=== PATIENT | male | born 1965 | race Caucasian/White ===

== ENCOUNTER 2021-08-28 15:17 | Emergency (ER) | payer OTHER, SELFPAY ==
--- NOTE | 2021-08-28 | ECG_ITS ---
Test Reason : rapid afib Blood Pressure : / mmHG Vent. Rate : 134 BPM Atrial Rate : 330 BPM P-R Int : 000 ms QRS Dur : 086 ms QT Int : 264 ms P-R-T Axes : 000 042 -04 degrees QTc Int : 394 ms Atrial flutter with variable A-V block Nonspecific ST abnormality RSR' or QR pattern in V1 suggests right ventricular conduction delay Abnormal ECG No previous ECGs available Referred By: Berlin Haines Electronically Signed By:RACHAEL HODGES MD
--- NOTE | ~2021-08-28 | XR_ITS ---
EXAMINATION: XR CHEST CLINICAL INFORMATION: Tachycardia COMPARISON: None TECHNIQUE: Frontal view of the chest was obtained. FINDINGS: No significant abnormality is noted involving the heart, lungs, mediastinum, bony thorax or soft tissues. XR/XR chest 1V IMPRESSION: Unremarkable chest examination.
[2021-08-28 15:27] VITALS: BP 146/85; PULSE 131; RESP 17; TEMP 36.5; O2SAT 97; BMI 27.8
--- NOTE | 2021-08-28 15:56 | ED_ITS ---
HPI - General Adult General Chief complaint: General Medical <Torri Mckeon NP - Last Filed: 08/28/21 18:02> Stated complaint: abnormal labs <Torri Mckeon NP - Last Filed: 08/28/21 18:02> Time Seen by Provider: 08/28/21 15:39 <Torri Mckeon NP - Last Filed: 08/28/21 18:02> Source: patient <Torri Mckeon NP - Last Filed: 08/28/21 18:02> Mode of arrival: ambulatory <Torri Mckeon NP - Last Filed: 08/28/21 18:02> Limitations: no limitations <Torri Mckeon NP - Last Filed: 08/28/21 18:02> History of Present Illness HPI narrative: 56-year-old male with a past medical history of anxiety, tobacco smoker here with complaints of abnormal EKG. Patient tells me that he was at his primary care doctor today for an annual appointment and was noted to have a fast heart rate. He had EKG that he told was abnormal and he was referred into the emergency department. He does report feeling anxious for the last few days with some occasional fluttering in the chest but denies any shortness of breath, chest pain, dizziness, fevers, chills, leg swelling or pain. Denies substance use No recent travel or sick contact Fully vaccinated for Pfizer and received his booster 1 month ago <Torri Mckeon NP - Last Filed: 08/28/21 18:02> Related Data Home medications: Previous Rx's Medication Instructions Recorded aspirin 81 mg capsule 81 mg PO DAILY #30 cap 08/28/21 diltiazem HCl 240 mg 240 mg PO DAILY 14 Days #14 cap 08/28/21 capsule,extended release 24 hr (Cardizem CD) <LILLIAN Alicea Last Filed: 08/28/21 18:02> Allergies/adverse reactions: Allergies Allergy/AdvReac Type Severity Reaction Status Date / Time bees Allergy Unknown allergic Uncoded 08/28/21 15:26 reaction <LILLIAN Alicea Last Filed: 08/28/21 18:02> Review of Systems Review of Systems: Yes all other systems are reviewed and are negative <Torri Mckeon NP - Last Filed: 08/28/21 18:02> Constitutional: Constitutional: Reports no additional constitutional complaints, Denies body ache(s), Denies chills, Denies fever(s), Denies hea dache(s) and Denies weakness <Torri Mckeon NP - Last Filed: 08/28/21 18:02> Eyes: Eyes: Reports no additional eye complaints and Denies change in vision <Torri Mckeon AUTO ELECTRICAL TECHNICIAN - Last Filed: 08/28/21 18:02> ENT: Reports system reviewed and no additional complaints, except as documented, Denies dizziness, Denies headache(s), Denies nasal congestion, Denies nasal discharge and Denies neck pain <Torri Mckeon NP - Last Filed: 08/28/21 18:02> Cardiovascular: Cardiovascular: Reports no additional cardiovascular complaints, Denies chest pain, Denies leg edema and Denies dyspnea <Torri Mckeon NP - Last Filed: 08/28/21 18:02> Comments: +chest fluttering <Torri Mckeon NP - Last Filed: 08/28/21 18:02> Respiratory: Respiratory: Reports no additional respiratory complaints, Denies cough and Denies dyspnea <Torri Mckeon NP - Last Filed: 08/28/21 18:02> Gastrointestinal: Gastrointestinal: Reports no additional gastrointestinal complaints, Denies abdominal pain, Denies diarrhea, Denies nausea and Denies vomiting <Torri Mckeon NP - Last Filed: 08/28/21 18:02> Genitourinary: Genitourinary: Denies urinary incontinence <Torri Mckeon NP - Last Filed: 08/28/21 18:02> Musculoskeletal: Musculoskeletal: Reports no additional musculoskeletal complaints, Denies back pain, Denies arthralgias, Denies joint swelling, Denies neck pain, Denies numbness and Denies tingling <Torri Mckeon NP - Last Filed: 08/28/21 18:02> Integumentary/Breasts: Skin/Breast: Reports system reviewed and no additional complaints, except as docu and Denies rash <Torri Mckeon NP - Last Filed: 08/28/21 18:02> Neurologic: Reports system reviewed and no additional complaints, except as documented, Denies Abnormal speech present, Denies dizziness, Denies headache(s), Denies numbness, Denies tingling and Denies weakness <Torri Mckeon NP - Last Filed: 08/28/21 18:02> Psychiatric: Psychiatric: Reports anxiety <Torri Mckeon NP - Last Fi led: 08/28/21 18:02> [facility] Past Medical History Attestation statement: The following information was validated with the patient. <Torri Mckeon NP - Last Filed: 08/28/21 18:02> Source: old records reviewed and nursing notes reviewed <Torri Mckeon NP - Last Filed: 08/28/21 18:02> Social History Social History: Social History Advance Directives: No Advance Directives Information Provided: No <Torri Mckeon NP - Last Filed: 08/28/21 18:02> Physical Exam Vital Signs: Vital Signs: Last Vital Signs Temp 98.8 F 08/28/21 16:11 Pulse 130 H 08/28/21 17:02 Resp 20 08/28/21 16:32 BP 135/83 08/28/21 17:02 Pulse Ox 95 08/28/21 16:11 Body Mass Index 27.8 <Torri Mckeon NP - Last Filed: 08/28/21 18:02> Vital Signs: Last Vital Signs Temp 98.8 F 08/28/21 16:11 Pulse 130 H 08/28/21 17:02 Resp 20 08/28/21 16:32 BP 135/83 08/28/21 17:02 Pulse Ox 95 08/28/21 16:11 Body Mass Index 27.8 <Berlin Haines MD - Last Filed: 08/28/21 18:55> Vital Signs: Last Vital Signs Temp 98.8 F 08/28/21 16:11 Pulse 130 H 08/28/21 17:02 Resp 20 08/28/21 16:32 BP 135/83 08/28/21 17:02 Pulse Ox 95 08/28/21 16:11 Body Mass Index 27.8 <LINDA Walls - Last Filed: 08/28/21 19:04> Const: General: cooperative, healthy appearing, comfortable and no acute distress <Torri Mckeon NP - Last Filed: 08/28/21 18:02> Orientation/consciousness: patient oriented x3 <Torri Mckeon NP - Last Filed: 08/28/21 18:02> Limitations: no limitations <Torri Mckeon NP - Last Filed: 08/28/21 18:02> HENMT: Head: Yes normal to inspection <Torri Mckeon NP - Last Filed: 08/28/21 18:02> Ears: hearing grossly normal bilaterally <Torri Mckeon NP - Last Filed: 08/28/21 18:02> General nose exam: Normal external nose present <Torri Mckeon NP - Last Filed: 08/28/21 18:02> Face and sinus: Yes normal facial exam <Torri Mckeon NP - Last Filed: 08/28/21 18:02> Mouth: Normal oral and palatal mucosa present <Torri Mckeon NP - Last Filed: 08/28/21 18:02> Throat: Yes posterior oropharynx normal <Torri Mckeon NP - Last Filed: 08/28/21 18:02> Eyes: General: appearance normal, both eyes and all related structures <Torri Mckeon NP - Last Filed: 08/28/21 18:02> Pupils: Equal, round and reactive pupils present <Torri Mckeon NP - Last Filed: 08/28/21 18:02> Neck: Neck: Yes normal visual inspection <Torri Mckeon NP - Last Filed: 08/28/21 18:02> Chest: Chest palpation & inspection: normal inspection of the chest <Torri Mckeon NP - Last Filed: 08/28/21 18:02> Resp: Effort & Inspection: normal respiratory effort <Torri Mckeon NP - Last Filed: 08/28/21 18:02> Auscultation: clear to auscultation bilaterally <Torri Mckeon NP - Last Filed: 08/28/21 18:02> Cardio: Rate: regular rate <Torri Mckeon NP - Last Filed: 08/28/21 18:02> Rhythm: abnormal rhythm irregularly irregular <Torri Mckeon NP - Last Filed: 08/28/21 18:02> Peripheral pulses: Peripheral pulses 2+ throughout <Torri Mckeon AUTO ELECTRICAL TECHNICIAN - Last Filed: 08/28/21 18:02> GI: Inspection: Yes normal to inspection <Torri Mckeon NP - Last Filed: 08/28/21 18:02> Palpation (GI): Soft to palpation and nontender <Torri Mckeon AUTO ELECTRICAL TECHNICIAN - Last Filed: 08/28/21 18:02> Auscultation: normal bowel sounds <Torri Mckeon NP - Last Filed: 08/28/21 18:02> Back/Spine/Pelvis: Thoracic/Lumbar Spine: thoracic and lumbar spine normal to inspection <Torri Mckeon AUTO ELECTRICAL TECHNICIAN - Last Filed: 08/28/21 18:02> Skin: General skin exam: no rashes or lesions noted <Torri Mckeon NP - Last Filed: 08/28/21 18:02> Neuro: General: patient oriented x3, no focal motor deficits and normal sensation to monofilament <Torri Mckeon NP - Last Filed: 08/28/21 18:02> Cranial nerves: Yes Equal, round and reactive pupils present <Torri Mckeon AUTO ELECTRICAL TECHNICIAN - Last Filed: 08/28/21 18:02> Cognition (Neuro): normal cognition <Torri Mckeon NP - Last Filed: 08/28/21 18:02> Speech: No Abnormal speech present <Torri Mckeon NP - Last Filed: 08/28/21 18:02> Gait exam (Neuro): Normal gait present <Torri Mckeon NP - Last Filed: 08/28/21 18:02> Motor exam (neuro): 5/5 motor strength present throughout <Torri Mckeon NP - Last Filed: 08/28/21 18:02> Extrem: General: Yes normal to inspection, Yes no pedal edema and Yes no calf tenderness <Torri Mckeon NP - Last Filed: 08/28/21 18:02> Course Course Course Narrative: 56-year-old male here with abnormal EKG from primary office. Patient does report some anxiety and fluttering sensation in the chest over the last few days. On arrival the patient has a heart rate of 134. His EKG shows atrial flutter with a variable AV block. He has no history of same. Will check labs, chest x-ray. Will give IV Cardizem 10 mg and reassess 1630-Continued tachycardia with a rate up to 140. Will re-dose of Cardizem 10 mg. May require drip and admission. Chads score 0 1645-Continued tachycardia with rates 120's still atrial flutter. 1700-Continued tachycardia 130's. Blood pressure is stable. At this point I discussed with patient that I would like to put him on a Cardizem drip and admit him but the patient tells me he takes care of his elderly mother at home and really needs to be discharged today. Therefore I discussed the case my attending. Plan to give 20 mg of IV Cardizem and a p.o. dose of Cardizem CD. Hopefully if rate is controlled he can be discharged to follow-up with cards. 1750-Sign out to Dr Haines/Paul MCKEON pending rate control with likely discharge. <Torri Mckeon NP - Last Filed: 08/28/21 18:02> Reevaluation(s) Reevaluation #1: patient refusing admission, heart rate not controlled will have him sign out AMA <Berlin Haines MD - Last Filed: 08/28/21 18:55> I went into the room to re-evaluate patient and patient's heart rate in the 130s to 140s. Patient informed he will need to go on a drip to control his heart rate. Patient informed he will need to be admitted. Patient states he cannot be admitted because he has to take care of his elderly mother and has no nonstick care of her. Patient informed he could from this abnormal arrhythmia, have a heart attack, or cardiomyopathy and patient still accepted risks and willing to sign against medical advice. Patient informed to return to the ED immediately if he feels worse or has any other symptoms. <LINDA Walls - Last Filed: 08/28/21 19:04> Time: 18:55 <Berlin Haines MD - Last Filed: 08/28/21 18:55> Reevaluation #2: I went into the room to re-evaluate patient and patient's heart rate in the 130s to 140s. Patient informed he will need to go on a drip to control his heart rate. Patient informed he will need to be admitted. Patient states he cannot be admitted because he has to take care of his elderly mother and has no one to care of her. Patient informed he could from this abnormal arrhythmia, have a heart attack, or cardiomyopathy and patient still accepted risks and willing to sign against medical advice. Patient informed to return to the ED immediately if he feels worse or has any other symptoms. <LINDA Walls - Last Filed: 08/28/21 19:04> Time: 18:55 <LINDA Walls - Last Filed: 08/28/21 19:04> Medical Decision Making MDM Narrative Medical decision making narrative: Atrial flutter <LINDA Walls - Last Filed: 08/28/21 19:04> Medical Records Medical records reviewed: Yes I reviewed the patient's medical records. <Torri Mckeon NP - Last Filed: 08/28/21 18:02> Lab Data Lab results reviewed: Yes I reviewed the patient's lab results. <Torri Mckeon NP - Last Filed: 08/28/21 18:02> Result diagrams: : 08/28/21 15:54 08/28/21 15:54 <Trori Mckeon NP - Last Filed: 08/28/21 18:02> Labs: Lab Results 08/28/21 08/28/21 08/28/21 Range/Units 15:54 15:54 15:54 WBC 9.1 (4.8-10.8) X10*3/uL RBC 4.66 (4.60-5.80) X10*6/uL Hgb 15.5 (14.0-18.0) g/dl Hct 43.3 (42-52) % MCV 92.9 (80-98) fL MCH 33.3 H (27.0-33.0) pg MCHC 35.8 (31.0-36.0) g/dl RDW 13.2 (11.0-16.0) % Plt Count 222 (160-400) X10*3/uL MPV 10.8 (9.4-12.4) fL Immature Gran % (Auto) 0.2 (0.0-0.4) % Neut % (Auto) 54.3 (45-73) % Lymph % (Auto) 36.1 (20-40) % [place] % (Auto) 7.1 (2-11) % Eos % (Auto) 1.5 (0-4) % Baso % (Auto) 0.8 (0-2) % Lymph # (Auto) 3.3 (1.2-4.9) X10*3/uL [place] # (Auto) 0.7 (0.1-1.2) X10*3/uL Eos # (Auto) 0.1 (0.0-0.4) X10*3/uL Baso # (Auto) 0.1 (0.0-0.2) X10*3/uL Abs Immat Gran (auto) 0.02 (0.00-0.03) X10*3/uL Absolute Neuts (auto) 5.0 (2.0-8.3) X10*3/uL Absolute Nucleated RBC 0.000 (0.0-0.012) X10*3/uL Nucleated RBC % (auto) 0.0 (0.0-0.2) /100WBC Sodium 138 (135-145) mmol/L Potassium 4.0 (3.3-5.1) mmol/L Chloride 107 (96-108) mmol/L Carbon Dioxide 21 L (22-29) mmol/L Anion Gap 14 (12-20) BUN 12 (9-16) mg/dL Creatinine 0.78 (0.5-1.4) mg/dL Estim Creat Clear Calc 117.4 Estimated GFR > 60 Random Glucose 140 H (60-115) mg/dL Calcium 9.6 (8.4-10.2) mg/dL Magnesium 2.0 (1.6-2.6) mg/dL Total Bilirubin 0.4 (0.0-1.0) mg/dL Direct Bilirubin 0.2 (0.0-0.5) mg/dL AST 14 (5-37) U/L ALT 17 (0-40) U/L Alkaline Phosphatase 64 (39-117) U/L Troponin I High Sens < 3.5 (<3.5-35.0) ng/L Total Protein 7.4 (6.5-8.0) g/dL Albumin 4.4 (3.5-5.0) g/dL <Torri Mckeon NP - Last Filed: 08/28/21 18:02> Lab Results 08/28/21 08/28/21 08/28/21 Range/Units 15:54 15:54 15:54 WBC 9.1 (4.8-10.8) X10*3/uL RBC 4.66 (4.60-5.80) X10*6/uL Hgb 15.5 (14.0-18.0) g/dl Hct 43.3 (42-52) % MCV 92.9 (80-98) fL MCH 33.3 H (27.0-33.0) pg MCHC 35.8 (31.0-36.0) g/dl RDW 13.2 (11.0-16.0) % Plt Count 222 (160-400) X10*3/uL MPV 10.8 (9.4-12.4) fL Immature Gran % (Auto) 0.2 (0.0-0.4) % Neut % (Auto) 54.3 (45-73) % Lymph % (Auto) 36.1 (20-40) % [place] % (Auto) 7.1 (2-11) % Eos % (Auto) 1.5 (0-4) % Baso % (Auto) 0.8 (0-2) % Lymph # (Auto) 3.3 (1.2-4.9) X10*3/uL [place] # (Auto) 0.7 (0.1-1.2) X10*3/uL Eos # (Auto) 0.1 (0.0-0.4) X10*3/uL Baso # (Auto) 0.1 (0.0-0.2) X10*3/uL Abs Immat Gran (auto) 0.02 (0.00-0.03) X10*3/uL Absolute Neuts (auto) 5.0 (2.0-8.3) X10*3/uL Absolute Nucleated RBC 0.000 (0.0-0.012) X10*3/uL Nucleated RBC % (auto) 0.0 (0.0-0.2) /100WBC Sodium 138 (135-145) mmol/L Potassium 4.0 (3.3-5.1) mmol/L Chloride 107 (96-108) mmol/L Carbon Dioxide 21 L (22-29) mmol/L Anion Gap 14 (12-20) BUN 12 (9-16) mg/dL Creatinine 0.78 (0.5-1.4) mg/dL Estim Creat Clear Calc 117.4 Estimated GFR > 60 Random Glucose 140 H (60-115) mg/dL Calcium 9.6 (8.4-10.2) mg/dL Magnesium 2.0 (1.6-2.6) mg/dL Total Bilirubin 0.4 (0.0-1.0) mg/dL Direct Bilirubin 0.2 (0.0-0.5) mg/dL AST 14 (5-37) U/L ALT 17 (0-40) U/L Alkaline Phosphatase 64 (39-117) U/L Troponin I High Sens < 3.5 (<3.5-35.0) ng/L Total Protein 7.4 (6.5-8.0) g/dL Albumin 4.4 (3.5-5.0) g/dL <Berlin Haines MD - Last Filed: 08/28/21 18:55> Lab Results 08/28/21 08/28/21 08/28/21 Range/Units 15:54 15:54 15:54 WBC 9.1 (4.8-10.8) X10*3/uL RBC 4.66 (4.60-5.80) X10*6/uL Hgb 15.5 (14.0-18.0) g/dl Hct 43.3 (42-52) % MCV 92.9 (80-98) fL MCH 33.3 H (27.0-33.0) pg MCHC 35.8 (31.0-36.0) g/dl RDW 13.2 (11.0-16.0) % Plt Count 222 (160-400) X10*3/uL MPV 10.8 (9.4-12.4) fL Immature Gran % (Auto) 0.2 (0.0-0.4) % Neut % (Auto) 54.3 (45-73) % Lymph % (Auto) 36.1 (20-40) % [place] % (Auto) 7.1 (2-11) % Eos % (Auto) 1.5 (0-4) % Baso % (Auto) 0.8 (0-2) % Lymph # (Auto) 3.3 (1.2-4.9) X10*3/uL [place] # (Auto) 0.7 (0.1-1.2) X10*3/uL Eos # (Auto) 0.1 (0.0-0.4) X10*3/uL Baso # (Auto) 0.1 (0.0-0.2) X10*3/uL Abs Immat Gran (auto) 0.02 (0.00-0.03) X10*3/uL Absolute Neuts (auto) 5.0 (2.0-8.3) X10*3/uL Absolute Nucleated RBC 0.000 (0.0-0.012) X10*3/uL Nucleated RBC % (auto) 0.0 (0.0-0.2) /100WBC Sodium 138 (135-145) mmol/L Potassium 4.0 (3.3-5.1) mmol/L Chloride 107 (96-108) mmol/L Carbon Dioxide 21 L (22-29) mmol/L Anion Gap 14 (12-20) BUN 12 (9-16) mg/dL Creatinine 0.78 (0.5-1.4) mg/dL Estim Creat Clear Calc 117.4 Estimated GFR > 60 Random Glucose 140 H (60-115) mg/dL Calcium 9.6 (8.4-10.2) mg/dL Magnesium 2.0 (1.6-2.6) mg/dL Total Bilirubin 0.4 (0.0-1.0) mg/dL Direct Bilirubin 0.2 (0.0-0.5) mg/dL AST 14 (5-37) U/L ALT 17 (0-40) U/L Alkaline Phosphatase 64 (39-117) U/L Troponin I High Sens < 3.5 (<3.5-35.0) ng/L Total Protein 7.4 (6.5-8.0) g/dL Albumin 4.4 (3.5-5.0) g/dL <LINDA Walls - Last Filed: 08/28/21 19:04> Imaging Data Chest x-ray: Attestation: I personally reviewed and interpreted this imaging study as follows: <Torri Mckeon NP - Last Filed: 08/28/21 18:02> Radiologist's impression: EXAMINATION: XR CHEST CLINICAL INFORMATION: Tachycardia COMPARISON: None TECHNIQUE: Frontal view of the chest was obtained. FINDINGS: No significant abnormality is noted involving the heart, lungs, mediastinum, bony thorax or soft tissues. XR/XR chest 1V IMPRESSION: Unremarkable chest examination. ? <Torri Mckeon NP - Last Filed: 08/28/21 18:02> ECG Data Attestation: I personally reviewed and interpreted this ECG as follows: <Torri Mckeon NP - Last Filed: 08/28/21 18:02> Interpretation: Atrial flutter rate 134, variable AV block. Normal QRS, normal QT <Torri Mckeon NP - Last Filed: 08/28/21 18:02> Discharge Plan Discharge Clinical Impression: Atrial flutter <Torri Mckeon NP - Last Filed: 08/28/21 18:02> Patient Disposition: Left Against Medical Advice <Torri Mckeon NP - Last Filed: 08/28/21 18:02> Instructions: Atrial Flutter (ED) <Torri Mckeon NP - Last Filed: 08/28/21 18:02> Additional Instructions: Start aspirin 81mg daily Next dose of cardizem is tomorrow Call cardiology tomorrow for a follow-up <Torri Mckeon NP - Last Filed: 08/28/21 18:02> Prescriptions: New diltiazem HCl [Cardizem CD] 240 mg capsule,extended release 24hr 240 mg PO DAILY 14 Days Qty: 14 RF: 0 aspirin 81 mg capsule 81 mg PO DAILY Qty: 30 RF: 0 <Torri Mckeon NP - Last Filed: 08/28/21 18:02> Referrals: Daryl Hawley MD [Physician] - 2 days <Torri Mckeon NP - Last Filed: 08/28/21 18:02> Stand Alone Forms: Against Medical Advice <Torri Mckeon NP - Last Filed: 08/28/21 18:02> Print Language: Frisian <Torri Mckeon NP - Last Filed: 08/28/21 18:02>
[2021-08-28 15:57] LABS: MANUAL DIFF FLAG NO
[2021-08-28 15:58] LABS: Basophils Absolute Auto 0.1 X10*3/uL (0.0-0.2); Basophils Percent Auto 0.8 % (0-2); Eosinophils Absolute Auto 0.1 X10*3/uL (0.0-0.4); Eosinophils Percent Auto 1.5 % (0-4); Hematocrit 43.3 % (42-52); Hemoglobin 15.5 g/dl (14.0-18.0); Imm Gran Abs Auto 0.02 X10*3/uL (0.00-0.03); Imm Gran Pct Auto 0.2 % (0.0-0.4); Lymphocytes Absolute Auto 3.3 X10*3/uL (1.2-4.9); Lymphocytes Percent Auto 36.1 % (20-40); Mean Corpuscular HGB Conc 35.8 g/dl (31.0-36.0); Mean Corpuscular Hemoglobin 33.3 pg (27.0-33.0); Mean Corpuscular Volume 92.9 fL (80-98); Mean Platelet Volume 10.8 fL (9.4-12.4); Monocytes Absolute Auto 0.7 X10*3/uL (0.1-1.2); Monocytes Percent Auto 7.1 % (2-11); Neutrophils Percent Auto 54.3 % (45-73); Platelet Count 222 X10*3/uL (160-400); Red Blood Count 4.66 X10*6/uL (4.60-5.80); Red Cell Distribution Width 13.2 % (11.0-16.0); White Blood Count 9.1 X10*3/uL (4.8-10.8)
[2021-08-28 15:59] VITALS: BP 155/79; PULSE 150
[2021-08-28] MEDS: dilTIAZem HCL 50 MG/10 ML VIAL 10 MG IVPUSH ×2 (15:59→16:27)
[2021-08-28 16:11] VITALS: BP 135/76; PULSE 122; RESP 20; TEMP 37.1; O2SAT 95
[2021-08-28 16:16] LABS: Alanine Aminotransferase 17 U/L (0-40); Albumin Level 4.4 g/dL (3.5-5.0); Alkaline Phosphatase 64 U/L (39-117); Anion Gap 14 (12-20); Aspartate Amino Transferase 14 U/L (5-37); Bilirubin Direct 0.2 mg/dL (0.0-0.5); Bilirubin Total 0.4 mg/dL (0.0-1.0); Blood Urea Nitrogen 12 mg/dL (9-16); Calcium 9.6 mg/dL (8.4-10.2); Carbon Dioxide 21 mmol/L (22-29); Chloride 107 mmol/L (96-108); Creatinine Clr Calc Pharmacy 117.4; Estimated Glomerular Filt Rate > 60; Glucose Random 140 mg/dL (60-115); Sodium 138 mmol/L (135-145); Total Protein 7.4 g/dL (6.5-8.0)
[2021-08-28 16:18] LABS: Troponin-I High Sensitivity < 3.5 ng/L (<3.5-35.0)
[2021-08-28 16:32] VITALS: BP 137/75; PULSE 128; RESP 20
[2021-08-28] MEDS: dilTIAZem HCL 50 MG/10 ML VIAL 20 MG IVPUSH (16:59)
[2021-08-28 17:02] VITALS: BP 135/83; PULSE 130
[2021-08-28] MEDS: dilTIAZem HCL CD 240 MG CAP.ER.DEG PO (17:02)
--- NOTE | 2021-08-28 19:08 | PC.NURSE ---
Patient discharged against medical advice at this time- understands risks of declining hospitalization, has elderly family member at home that requires his care. Pt able to verbalize understanding of risks associated w/ leaving, up to and including . PIV removed without complication. Rx provided, return precautions discussed. Pt ambulatory out of dept, in NAD at time of dc
== END 2021-08-28 19:09 | disposition left against medical advice (07) ==
PROVIDERS: Nurse Practitioner Family; Emergency Provider Emergency Medicine; PCP Internal Medicine
DX: I48.92 Unspecified atrial flutter (principal); R00.0 Tachycardia, unspecified; F17.200 Nicotine dependence, unspecified, uncomplicated
CPT/HCPCS: 36415; 71045; 80048; 80076; 83735; 84484; 85025; 93005; 96374; 96376; 99283; 99284

== ENCOUNTER → 2021-09-25 08:56 | Outpatient (BNVA) | payer OTHER, SELFPAY | PROVIDERS: PCP Internal Medicine; Visit Provider Internal Medicine Cardiovascular Disease | DX: I48.19 Other persistent atrial fibrillation (principal); R00.2 Palpitations; E11.9 Type 2 diabetes mellitus without complications; F17.200 Nicotine dependence, unspecified, uncomplicated; Z91.030 Bee allergy status; Z79.82 Long term (current) use of aspirin; Z79.899 Other long term (current) drug therapy | CPT/HCPCS: 93005 ==

== ENCOUNTER → 2021-10-03 07:30 | Outpatient (REF) | payer OTHER, SELFPAY ==
--- NOTE | 2021-10-03 07:33 | CA_ITS ---
INDICATIONS: PERSISTENT ATRIAL FIBRILLATION HT: 6' WT: 204 BSA: BP: 140/74 ANALYSIS EVALUATOR: YR STUDY QUALITY: ECG RHYTHM: CONCLUSIONS: FINDINGS: M-MODE/2D MEASUREMENTS: LVd: 4.21 LVs: 3.22 IVSd: 1.21 IVSs: LVPWd: 1.13 LVPWs: ASC Aorta: 3.1 RVd: 2.92 AO Root: 3.6 LA: 3.2 AV CUSP: LVOT: 2.3 EF% 55% TAPSE: 1.84 OTHER: EFFUSION: 0 THROMBUS: 0 WALL MOTION: RVSP: 19 mmHg Mitral E/A: E MED E Lat. AV CUSPS TRILEAFLET: DOPPLER MEASUREMENTS: AORTIC PP mmHg MP mmHg VELOCITY: 109 m/s VALVE AREA: 3.44 CM^2 TRICUSPID: 16 mmHg VELOCITY: 201 m/s RA VOL. 16.1 IVC 1.09 LA Vol. 27.2 RVS 15.6 MTDD
--- NOTE | 2021-10-03 07:33 | CA_ITS ---
Transthoracic Echocardiogram Patient (Last, First, Middle): James Silveira, Gender: Male Date of : 1965 Age: 56 Procedure Date: 10/03/2021 Procedure Type: Transthoracic Echocardiogram Location: OP Height: 182.88 cm Weight: 92.53 kg BSA: 2.15 m2 Heart Rate: bpm BP: 140 / 74 mmHg Mechanic General Operational Test: CHARY Referring MD: Daryl Hawley MD Real Estate Lawyer: Daryl Hawley MD Symptoms: I48.19 - Other persistent atrial fibrillation Study Quality: Fair ECG Rhythm: Atrial Fibrillation Conclusions: - 1. Low normal LV systolic function with mild LVH 2. Normal biatrial chamber size 3. Normal cardiac valvular Doppler 4. Normal RV systolic pressure 5. No gross pericardial effusion Findings Left Ventricle Normal left ventricular size and systolic function. There is mildly increased left ventricular wall thickness. The visually estimated ejection fraction is between 50-55%. Diastolic function is indeterminate on the basis of available data. Right Ventricle Normal right ventricular cavity size and systolic function. Atria Both atria are normal in size. There is no evidence of interatrial shunt. Aortic Valve The aortic valve structure and function is likely normal. There is no aortic valve stenosis. There is no aortic valve regurgitation. Mitral Valve Likely normal mitral valve structure and function. There is trace mitral valve regurgitation. There is no mitral valve stenosis. Pulmonic Valve The pulmonic valve was not well visualized. Tricuspid Valve Likely normal tricuspid valve structure and function. There is trace tricuspid valve regurgitation. The right ventricular systolic pressure is normal. The right ventricular systolic pressure is 19 mmHg. Normal right atrial pressure. There is no evidence of pulmonary hypertension. Great Vessels All visible segments of the aorta are normal in size. The pulmonary artery was not well visualized. Venous The inferior vena cava is normal in size and collapses greater than 50% with inspiration. Pericardium/Pleural There is no evidence of pericardial effusion. Prior Study Comparison No prior study available for comparison. Measurements 2D Linear Measurements IVSd: 1.21 0.6-0.9/0.6-1.0 cm LVIDd: 4.21 3.9-5.3/4.2-5.9 cm LVIDd Index: 1.96 2.4-3.2/2.2-3.1 cm/m2 LVIDs: 3.22 2.0-3.6 cm LVPWd: 1.13 0.7-1.1 cm Ao Root: 3.60 2.1-3.5 cm LA Diam: 3.20 2.7-3.8/3.0-4.0 cm LAIDs Index: 1.49 1.5-2.3 cm/m2 LV Mass: 214.65 67-162/88-224 g LV Mass Index: 99.84 43-95/49-115 g/m2 LVOT Diam: 2.30 3.0+(-)1.3 cm 2D Systolic Function EF 4C: 50.40 >55% EF 2C: 50.70 >55% EF BiP: 51.20 >55% Aortic Valve AoV Pk Juan: 1.09 AoV Mn Juan: 0.79 AoV VTI: 0.19 AoV Pk Grad: 5.00 Aov Mn Grad: 3.00 SARY Cont.VTI: 3.44 LVOT LVOT Pk Juan: 0.92 LVOT Mn Juan: 0.66 LVOT VTI: 0.15 LVOT Pk Grad: 3.00 LVOT Mn Grad: 2.00 LVOT Diam: 2.30 LVOT Area: 4.15 Right Ventricle TAPSE (mm): 1.84 Tricuspid Valve TR Pk Juan: 2.01 TR Pk Grad: 16.00 RA Press: 3.00 RVSP: 19.00 Great Vessels Aorta Ao Root-2D: 3.60 2.0-3.7 cm Ao Asc: 3.10 2.1-3.4 cm Ao Arch: 2.60 Updated in Other Vendor System with Status of Final Daryl Hawley MD electronically signed on 10/09/2021 2:24:50 PM with status of Final
== END ==
LOC: HO.CARD 07:30
PROVIDERS: PCP Internal Medicine; Visit Provider Internal Medicine Cardiovascular Disease
DX: I48.19 Other persistent atrial fibrillation (principal)
CPT/HCPCS: 93306

== ENCOUNTER → 2021-10-08 07:14 | Outpatient (REF) | payer OTHER, SELFPAY ==
--- NOTE | 2021-10-08 07:18 | HM_ITS ---
Conclusion: 1. Patient was monitored for total period of 2 days and 23 hours. 2. Predominant underlying rhythm is sinus rhythm with average heart of 87 beats per minute 3. Intermittent atrial fibrillation/flutter, total burden 16.5% with longest episode lasting for hours and 2 minutes. Patient is rapid ventricular response during episodes of atrial flutter. 4. No significant pauses or bradycardia noted 5. Total of 6343 PACs accounting for 1.68% of total burden accounting for occasional PACs 6. No patient reported events MTDD
== END ==
LOC: HO.CARD 07:14
PROVIDERS: PCP Internal Medicine; Visit Provider Internal Medicine Cardiovascular Disease
DX: I48.19 Other persistent atrial fibrillation (principal)
CPT/HCPCS: 93242

== ENCOUNTER → 2021-10-23 12:57 | Day surgery (SDC) | payer OTHER, SELFPAY ==
[2021-10-17 14:46] VITALS: BMI 28.5
--- NOTE | 2021-10-22 08:44 | HO.ANESPROP2 ---
HPI - Anesthesia Eval Consult details Narrative: 56yo M for Cardioversion [facility] Active Problems Active Problems: All Active Problems (Updated 10/17/21 @ 14:46 by Mel Velez RN) Diabetes mellitus (Acute) Persistent atrial fibrillation (Acute) Past Medical History Medical History (Updated 10/17/21 @ 14:46 by Mel Velez RN) Asthma Borderline diabetes COVID-19 vaccine series completed HTN (hypertension) Persistent atrial fibrillation Family History Family History Father CVA (cerebral vascular accident) Mother No problems noted. Surgical History Surgical History (Updated 10/17/21 @ 14:45 by Mel Velez RN) Hx of hernia repair Social History Social History Household Members Other:: partner & mother Are you a primary healthcare administration internship to a significant other at home: No Do you presently have visiting nurse or other home services: No Patient Tobacco Use Status: Current everyday Tobacco user Tobacco use type: Cigarette Cigarette Packs Per Day: 1 Cigarettes Per Day: 20.0 Years Smoked: 37 Meds Allergies Allergy/AdvReac Type Severity Reaction Status Date / Time bee pollen [bee stings] Allergy Severe Anaphylaxis Verified 10/17/21 14:26 meperidine [From Demerol] Allergy Intermediate Itching Verified 10/17/21 14:45 Home Medications Medication Instructions Recorded Confirmed Last Taken Type albuterol sulfate 90 mcg/actuation 2 puff INHALATION Q4H PRN 10/17/21 10/17/21 Unknown History aerosol inhaler diltiazem HCl 240 mg 240 mg PO QAM 10/17/21 10/17/21 Unknown History capsule,extended release 24 hr (Cardizem CD) epinephrine 0.3 mg/0.3 mL 0.3 mg IM ONCE PRN 10/17/21 10/17/21 Unknown History injection, auto-injector loratadine 10 mg tablet (Claritin) 10 mg PO DAILY 10/17/21 10/17/21 Unknown History rivaroxaban 20 mg tablet (Xarelto) 20 mg PO QPM 10/17/21 10/17/21 Unknown History Exam Exam Date and Time: October 22, 2021 0844 Height,Weight and Vital Signs: Height 6 ft Weight 95.254 kg Narrative Narrative: EKG 09/2021 atrial fibrillation at 86 beats per minute Assessment and Plan Assessment Anesthesia Assessment: Chart Reviewed
--- NOTE | 2021-10-23 13:07 | ECG_ITS ---
Test Reason : PREOP Blood Pressure : / mmHG Vent. Rate : 080 BPM Atrial Rate : 080 BPM P-R Int : 162 ms QRS Dur : 080 ms QT Int : 382 ms P-R-T Axes : 067 041 060 degrees QTc Int : 440 ms Normal sinus rhythm Possible Left atrial enlargement Borderline ECG When compared with ECG of 28-AUG-2021 15:39, Sinus rhythm has replaced Atrial flutter Vent. rate has decreased BY 54 BPM Non-specific change in ST segment in Inferior leads ST no longer depressed in Lateral leads Referred By: Daryl Hawley Electronically Signed By:Joe Lara
--- NOTE | 2021-10-23 13:31 | PC.NURSE ---
pt noted to be in NSR, Dr. Hawley at bedside. 12Lead EKG obtained and sent via [employer] to Dr. Hawley. pt confirmed to be in NSR. procedure cancelled and pt discharged home.
== END ==
PROVIDERS: PCP Internal Medicine; Visit Provider Internal Medicine Cardiovascular Disease
DX: I48.19 Other persistent atrial fibrillation (principal); Z53.8 Procedure and treatment not carried out for other reasons; Z79.01 Long term (current) use of anticoagulants
CPT/HCPCS: 93005

== ENCOUNTER → 2021-11-28 07:01 | Outpatient (REF) | payer OTHER, SELFPAY ==
--- NOTE | 2021-11-28 07:05 | HM_ITS ---
Conclusion: 1. Patient was monitored for total period of 3 days and 18 hours 2. Predominant underlying rhythm is sinus rhythm with intermittent episodes of atrial fibrillation, total burden 19.03% 3. In sinus rhythm heart rate well controlled at 84 beats per minute. 4. Rare ectopy is noted 5. No patient reported events MTDD
== END ==
LOC: HO.CARD 07:01
PROVIDERS: Visit Provider Internal Medicine Cardiovascular Disease
DX: I48.19 Other persistent atrial fibrillation (principal); Z79.899 Other long term (current) drug therapy
CPT/HCPCS: 93242

== ENCOUNTER → 2021-12-06 09:49 | Outpatient (BNVA) | payer OTHER, SELFPAY | PROVIDERS: PCP Internal Medicine; Visit Provider Internal Medicine Cardiovascular Disease | DX: I48.0 Paroxysmal atrial fibrillation (principal) | CPT/HCPCS: 93005 ==

== ENCOUNTER → 2021-12-13 08:55 | Outpatient (BNVA) | payer OTHER, SELFPAY | PROVIDERS: PCP Internal Medicine; Visit Provider Internal Medicine Cardiovascular Disease | DX: I48.0 Paroxysmal atrial fibrillation (principal) | CPT/HCPCS: 93005 ==

== ENCOUNTER → 2022-03-06 14:04 | Outpatient (BNVA) | payer OTHER, SELFPAY | PROVIDERS: PCP Internal Medicine; Visit Provider Internal Medicine Cardiovascular Disease | DX: I48.0 Paroxysmal atrial fibrillation (principal) | CPT/HCPCS: 93005 ==

== ENCOUNTER → 2022-06-05 09:07 | Outpatient (BNVA) | payer OTHER, SELFPAY | PROVIDERS: PCP Internal Medicine; Visit Provider Internal Medicine Cardiovascular Disease | DX: I48.0 Paroxysmal atrial fibrillation (principal) | CPT/HCPCS: 93005 ==

== ENCOUNTER → 2022-08-11 11:18 | Outpatient (BNVA) | payer OTHER, SELFPAY | PROVIDERS: PCP Internal Medicine; Visit Provider Internal Medicine Cardiovascular Disease | DX: I48.0 Paroxysmal atrial fibrillation (principal); I77.9 Disorder of arteries and arterioles, unspecified | CPT/HCPCS: 93005 ==

== ENCOUNTER → 2022-11-13 09:54 | Outpatient (BNVA) | payer OTHER, SELFPAY | PROVIDERS: PCP Internal Medicine; Visit Provider Internal Medicine Cardiovascular Disease | DX: I48.91 Unspecified atrial fibrillation (principal); Z79.899 Other long term (current) drug therapy | CPT/HCPCS: 93005 ==

== ENCOUNTER → 2022-11-20 09:11 | Outpatient (BNVA) | payer OTHER, SELFPAY | PROVIDERS: PCP Internal Medicine; Visit Provider Surgery Vascular Surgery | DX: Z13.89 Encounter for screening for other disorder (principal) ==

== ENCOUNTER → 2023-01-14 07:51 | Outpatient (REF) | payer OTHER, SELFPAY ==
--- NOTE | 2023-01-14 07:55 | CA_ITS ---
Transthoracic Echocardiogram Patient (Last, First, Middle): James Silveira, Gender: Male Date of : 1965 Age: 57 Procedure Date: 01/14/2023 Procedure Type: Transthoracic Echocardiogram Location: OP Height: 182.88 cm Weight: 99.79 kg BSA: 2.22 m2 Heart Rate: 69 bpm BP: 130 / 70 mmHg Forestry Aid Technician: THADDEUS Referring MD: Daryl Hawley MD Ct Technician: Daryl Hawley MD Symptoms: I48.0 - Paroxysmal atrial fibrillation Study Quality: Fair ECG Rhythm: Sinus Conclusions: - 1. Low normal LV systolic function with grade 1 diastolic this function 2. Normal cardiac valvular Doppler 3. No gross pericardial effusion Findings Left Ventricle Normal left ventricular cavity size. There is normal left ventricular wall thickness. The left ventricular systolic function is low normal. The visually estimated ejection fraction is between 50-55%. Spectral Doppler is indicative of an impaired relaxation filling pattern. E/E prime ratio is <8, consistent with normal filling pressures. Right Ventricle Normal right ventricular cavity size and systolic function. Atria Both atria are normal in size. Interatrial shunt cannot be excluded. Aortic Valve Normal aortic valve structure and function. There is no aortic valve stenosis. There is no aortic valve regurgitation. Mitral Valve Normal mitral valve structure and function. There is no mitral valve regurgitation. There is no mitral valve stenosis. Pulmonic Valve The pulmonic valve was not well visualized. Tricuspid Valve Likely normal tricuspid valve structure and function. Tricuspid regurgitation envelope is inadequate for calculation of right ventricular systolic pressure. Normal right atrial pressure. Great Vessels All visible segments of the aorta are normal in size. The pulmonary artery was not well visualized. Venous The inferior vena cava is normal in size and collapses greater than 50% with inspiration. Pericardium/Pleural There is no evidence of pericardial effusion. Measurements 2D Linear Measurements IVSd: 1.13 0.6-0.9/0.6-1.0 cm LVIDd: 5.62 3.9-5.3/4.2-5.9 cm LVIDd Index: 2.53 2.4-3.2/2.2-3.1 cm/m2 LVIDs: 3.66 2.0-3.6 cm LVPWd: 0.96 0.7-1.1 cm LA Diam: 3.60 2.7-3.8/3.0-4.0 cm LAIDs Index: 1.62 1.5-2.3 cm/m2 LV Mass: 291.30 67-162/88-224 g LV Mass Index: 131.22 43-95/49-115 g/m2 LVOT Diam: 2.00 3.0+(-)1.3 cm 2D Systolic Function EF 4C: 50.30 >55% EF 2C: 53.80 >55% EF BiP: 52.10 >55% Mitral Valve MV Pk E: 0.77 MV PK A: 0.75 MV Decel Time: 270.00 E/A: 1.00 E'Lateral: 9.46 E'Medial: 7.51 E/E' Med: 10.30 E/E' Lat: 8.20 PHT: 79.00 MVA PHT: 2.78 Decel [place]: 2.85 Aortic Valve AoV Pk Juan: 1.20 AoV Mn Juan: 0.80 AoV VTI: 0.23 AoV Pk Grad: 6.00 Aov Mn Grad: 3.00 SARY Cont.VTI: 2.46 LVOT LVOT Pk Juan: 1.06 LVOT Mn Juan: 0.65 LVOT VTI: 0.18 LVOT Pk Grad: 4.00 LVOT Mn Grad: 2.00 LVOT Diam: 2.00 LVOT Area: 3.14 Diastolic Function MV Pk E: 0.77 MV Pk A: 0.75 E/A: 1.00 E'Medial: 7.51 E/E' Med: 10.30 E' Laterial: 9.46 E/E' Lat: 8.20 Right Ventricle TAPSE (mm): 19.90 TVS' Juan: 11.30 Tricuspid Valve RA Press: 3.00 Great Vessels Aorta Sinus of Valsalva: 3.50 2.0-3.5 cm Ao Asc: 3.50 2.1-3.4 cm Pulmonary Valve PV Pk Juan: 0.81 Peak PV Grad: 3.00 Updated in Other Vendor System with Status of Final Daryl Hawley MD electronically signed on 01/15/2023 5:06:29 PM with status of Final
== END ==
LOC: HO.CARD 07:51
PROVIDERS: Visit Provider Internal Medicine Cardiovascular Disease
DX: I48.0 Paroxysmal atrial fibrillation (principal)
CPT/HCPCS: 93306

== ENCOUNTER → 2023-02-12 08:43 | Outpatient (BNVA) | payer OTHER, SELFPAY | PROVIDERS: PCP Internal Medicine; Visit Provider Internal Medicine Cardiovascular Disease | DX: I48.0 Paroxysmal atrial fibrillation (principal); I77.9 Disorder of arteries and arterioles, unspecified | CPT/HCPCS: 93005 ==

== ENCOUNTER 2023-03-17 10:23 | Outpatient (REF) | payer OTHER, SELFPAY ==
--- NOTE | ~2023-03-17 | US_ITS ---
EXAMINATION: US EXTRACRANIAL CAROTID DUPLEX, BILATERAL CLINICAL INFORMATION: Carotid stenosis. Current smoker. Hypertension. Hyperlipidemia. COMPARISON: 03/07/2022. TECHNIQUE: Real-time ultrasound and Doppler techniques (integrating B-mode 2-D vascular images, Doppler spectral analysis and color-flow Doppler imaging) were utilized to interrogate the extracranial carotid arteries, the vertebral arteries and proximal subclavian arteries bilaterally. The degree of stenosis is determined by criteria similar to NASCET. FINDINGS: Right Side: 1. There is moderate atherosclerotic plaque seen in the bifurcation/proximal ICA region. 2. The common carotid artery PSV proximally is 97 cm/s and distally 90 cm/s. 3. The proximal internal carotid artery velocities are 58 cm/s systolic and 26 cm/s diastolic. 4. The proximal external carotid artery PSV is 140 cm/s. 5. The vertebral artery shows antegrade flow. 6. The subclavian artery waveforms are normal. Left Side: 1. There is moderate atherosclerotic plaque seen in the bifurcation/proximal ICA region. 2. The common carotid artery PSV proximally is 89 cm/s and distally 100 cm/s. 3. The proximal internal carotid artery velocities are 64 cm/s systolic and 24 cm/s diastolic. 4. The proximal external carotid artery PSV is 106 cm/s. 5. The vertebral artery shows antegrade flow. 6. The subclavian artery waveforms are normal. US/US carotid duplex BI IMPRESSION: 1. RIGHT: Minimal, non-hemodynamically significant stenosis of the proximal right internal carotid artery corresponding to a 0-49% stenosis by velocity criteria. 2. LEFT: Minimal, non-hemodynamically significant stenosis of the proximal left internal carotid artery corresponding to a 0-49% stenosis by velocity criteria. 3. Disease category on the right is stable in the 0-49% stenosis range and disease category on the left is improved from 50-79% to 0-49% stenosis range compared to 03/07/2022.
== END 2023-03-17 10:24 | disposition home or self-care (01) ==
LOC: HO.US 10:23
PROVIDERS: PCP Internal Medicine; Visit Provider Surgery Vascular Surgery
DX: I65.23 Occlusion and stenosis of bilateral carotid arteries (principal)
CPT/HCPCS: 93880

== ENCOUNTER → 2023-04-07 10:09 | Outpatient (BNVA) | payer OTHER, SELFPAY | PROVIDERS: PCP Internal Medicine; Visit Provider Surgery Vascular Surgery ==

== ENCOUNTER → 2023-05-21 08:28 | Outpatient (BNVA) | payer OTHER, SELFPAY | PROVIDERS: PCP Internal Medicine; Visit Provider Internal Medicine Cardiovascular Disease | DX: I48.92 Unspecified atrial flutter (principal) | CPT/HCPCS: 93005 ==

== ENCOUNTER 2023-05-28 08:12 | Outpatient (AMB) | payer OTHER, SELFPAY ==
--- NOTE | 2023-05-28 08:18 | MHC.OFFVIS ---
Intake Vital Signs 05/28/23 08:19 Height 6 ft Weight 205 lb 0.478 oz BMI 27.8 BP 130/70 Blood Pressure Location Rt brachial Position Sitting Pulse 67 Intake Visit Reasons: follow-up with ekg aflutter on ekg last week Intake Note: follow up with ekg aflutter on ekg last week Vending Machine Repairer Required: No Allergies bee pollen [bee stings] Allergy (Severe, Verified 05/28/23 08:26) Anaphylaxis meperidine [From Demerol] Allergy (Intermediate, Verified 05/28/23 08:26) Itching Medication List - Last Reconciled 05/28/23 by Helen Brody, JEWELRY DRILL OPERATOR-C albuterol sulfate 90 mcg/actuation 2 puffs inhalation Q4H PRN atorvastatin 20 mg PO DAILY diltiazem HCl (Cardizem CD) 240 mg PO QAM 90 days dronedarone (Multaq) 400 mg PO BID epinephrine 0.3 mg IM ONCE PRN loratadine (Claritin) 10 mg PO DAILY metformin 500 mg PO DAILY rivaroxaban (Xarelto) 20 mg PO QPM HPI follow-up with ekg aflutter on ekg last week HPI Details James is a 58-year-old male with past medical history of hypertension, borderline diabetes, carotid stenosis, paroxysmal atrial fibrillation suppressed with Multaq and diltiazem who came for routine office EKG showing atrial flutter. He now presents for follow-up office visit. Today he reports That occasionally he will feel nervous in his chest like he is drinking too much coffee. He does not notice specific heart palpitations that cause him concern. Sometimes in the evening he will notice something different and it goes away if he raises his arms. No chest discomfort at rest or with activity. No shortness of breath, dizziness, presyncope, syncope, PND, orthopnea or edema. He does report frequent urination and is unclear of the cause. No bleeding issues reported with Xarelto. Tells me he has been under increased stress recently as his father was just placed on comfort care. Taking all meds as directed. Drinks 3 caffeinated beverages a day which is his normal. [facility] Medical History Asthma Borderline diabetes COVID-19 vaccine series completed HTN (hypertension) Paroxysmal atrial fibrillation Persistent atrial fibrillation Surgical History Hx of hernia repair Family History Father CVA (cerebral vascular accident) Mother No problems noted. Social History Household Members Other:: partner & mother Are you a primary neonatal intensive care unit nurse to a significant other at home: No Do you presently have visiting nurse or other home services: No Alcohol intake: never Patient Tobacco Use Status: Current everyday Tobacco user Tobacco use type: Cigarette Cigarette Packs Per Day: 1 Cigarettes Per Day: 20.0 Years Smoked: 37 +/- Review of Systems Const All systems reviewed & are unremarkable except as noted in HPI and below ENT Reports dizziness Card Denies chest pain, Denies chest pain at rest, Denies chest pain with activity, Denies rapid heart rate, Denies pedal edema, Denies edema, Denies leg edema, Denies lightheadedness, Denies palpitations, Denies dyspnea, Denies dyspnea on exertion and Denies orthopnea Resp Denies cough, Denies dyspnea and Denies dyspnea on exertion GI Denies hematochezia and Denies change in stool character Musc Denies abnormal gait, Reports limited range of motion, Reports muscle cramps, Denies muscle weakness, Denies numbness, Denies radiating pain into limb, Denies stiffness and Denies tingling Neuro Denies abnormal gait, Reports dizziness, Denies numbness and Denies tingling Endo Denies palpitations Physical Exam Vital Signs: Last Vital Signs Pulse 67 05/28/23 08:19 BP 130/70 05/28/23 08:19 BMI result Body Mass Index 27.8 Const General: cooperative, healthy appearing, comfortable and no acute distress Orientation/consciousness: patient oriented x3 Neck Neck: Yes normal visual inspection and Yes no JVD Resp Effort & Inspection: normal respiratory effort Auscultation: clear to auscultation bilaterally, no crackles, no rales, no rhonchi and no wheezes Cardio Jugular venous distension: no JVD Rate: regular rate Rhythm: regular rhythm Heart sounds: S1 normal heart sound present, S2 normal heart sound present, no gallops, no murmurs and no rubs Neuro General: patient oriented x3 Extrem General: Yes normal to inspection Psych Appearance: grossly normal Mental Status: mental status grossly normal Speech and movement: Normal speech and movement present Office Procedures EKG Details: today, read by me, normal sinus rhythm, nonspecific ST and T-wave abnormalities, rate 67, QTC 420 millisecond [id number], Complete Assessment & Plan Assessment & Plan (1) Atrial flutter: Code(s): I48.92 - Unspecified atrial flutter Plan: Recent EKG done for Multaq monitoring purposes on 05/21/2023 that showed atrial flutter, rate 79, QTC 410 milliseconds. He has been on Multaq 400 mg b.i.d. and diltiazem CD 240 mg daily. He is on Xarelto for anticoagulation. EKG done today showing sinus rhythm, rate 67. Patient does report intermittent feelings unsettled this in his chest. He has no clear heart palpitations, shortness of breath or chest discomfort. Sometimes when he gets this feeling if he raises his arms it will go away. Taking medications without interruption. Does drink 3 caffeinated beverages a day which he says is his norm. Last echo done 01/14/2023 showed EF 50-55%, grade 1 diastolic dysfunction, normal valves. Will check a Holter monitor to evaluate for recurrent episodes of paroxysmal atrial flutter. It is unclear if his unsettled feeling in chest is actual flutter or not. Continue diltiazem, Multaq and Xarelto. Cardiology visit previously planned for July. Will keep that appointment at present. (2) Paroxysmal atrial fibrillation: Code(s): I48.0 - Paroxysmal atrial fibrillation Plan: history of paroxysmal atrial fibrillation treated with rhythm control. (3) Bilateral carotid artery disease: Code(s): I77.9 - Disorder of arteries and arterioles, unspecified Plan: History of bilateral carotid artery stenosis which is followed by Dr. Montes De Oca. Recent visit with planned 1 year follow-up (4) HTN (hypertension): Code(s): I10 - Essential (primary) hypertension Plan: well controlled today. Blood pressure 130/70. Continue current management. Orders: Orders ECG 5 day holter monitor Today I48.0 - Paroxysmal atrial fibrillation Coding Level of Care Code Est Pt Level 4 (97428) Diagnoses Atrial flutter I48.92 Paroxysmal atrial fibrillation I48.0 Bilateral carotid artery disease I77.9 HTN (hypertension) I10 CPT Codes EKG - CPT: 38220-[id number], Complete ([id number])
[2023-05-28 08:19] VITALS: BP 130/70; PULSE 67; BMI 27.8
== END 2023-05-28 08:40 | disposition home or self-care (01) ==
PROVIDERS: PCP Internal Medicine; Visit Provider Nurse Practitioner Family
DX: I48.92 Unspecified atrial flutter (principal); I48.0 Paroxysmal atrial fibrillation; I77.9 Disorder of arteries and arterioles, unspecified; I10 Essential (primary) hypertension
CPT/HCPCS: 93010; 99214

== ENCOUNTER → 2023-05-28 08:12 | Outpatient (BNVA) | payer OTHER, SELFPAY | PROVIDERS: PCP Internal Medicine; Visit Provider Nurse Practitioner Family | DX: I10 Essential (primary) hypertension (principal); I48.92 Unspecified atrial flutter; I77.9 Disorder of arteries and arterioles, unspecified; I48.0 Paroxysmal atrial fibrillation; R73.03 Prediabetes; Z79.899 Other long term (current) drug therapy | CPT/HCPCS: 93005 ==

== ENCOUNTER → 2023-06-16 06:57 | Outpatient (REF) | payer OTHER, SELFPAY ==
--- NOTE | 2023-06-16 06:59 | HM_ITS ---
* Total monitoring time 4 days. * Underlying rhythm is sinus. Average ventricular rate 77/min. * Atrial flutter present. [place] of 27%. Longest episode 11 hours and 35 minutes. Fastest 149/Min. Some strips could be atrial fibrillation. * Rare supraventricular ectopy. * Extremely rare ventricular ectopy. * No significant pauses or AV blocks. * No patient markers or events in diary. MTDD
== END ==
LOC: HO.CARD 06:57
PROVIDERS: PCP Internal Medicine; Visit Provider Nurse Practitioner Family
DX: I48.0 Paroxysmal atrial fibrillation (principal)
CPT/HCPCS: 93242

== ENCOUNTER → 2023-06-16 06:59 | Outpatient (BNV) | payer OTHER, SELFPAY | PROVIDERS: PCP Internal Medicine; Visit Provider Internal Medicine | DX: I48.92 Unspecified atrial flutter (principal) | CPT/HCPCS: 93244 ==

== ENCOUNTER 2023-08-17 08:23 | Outpatient (AMB) | payer OTHER, SELFPAY ==
--- NOTE | 2023-08-17 08:29 | A.OFFVIS_ITS ---
Intake Vital Signs 08/17/23 08:30 Height 6 ft Weight 211 lb 10.3 oz BMI 28.7 BP 120/70 Blood Pressure Location Lt brachial Position Sitting Pulse 89 Intake Visit Reasons: 6 mth f/up w/ ekg Intake Note: 6 month follow-up with ekg feeling good Corporate Human Resources Manager Required: No Allergies bee pollen [bee stings] Allergy (Severe, Verified 05/28/23 08:26) Anaphylaxis meperidine [From Demerol] Allergy (Intermediate, Verified 05/28/23 08:26) Itching Medication List - Last Reconciled 08/17/23 by Daryl Hawley MD albuterol sulfate 90 mcg/actuation 2 puffs inhalation Q4H PRN atorvastatin 20 mg PO DAILY diltiazem HCl (Cardizem CD) 240 mg PO QAM 90 days dronedarone (Multaq) 400 mg PO BID epinephrine 0.3 mg IM ONCE PRN loratadine (Claritin) 10 mg PO DAILY metformin 500 mg PO DAILY rivaroxaban (Xarelto) 20 mg PO QPM HPI HPI Comments History of Present Illness Details Allan comes for follow-up. He said he feels often feels is heart is in atrial fibrillation and feels a little lightheaded and may be a little short of breath. Her said the symptoms are not significant. However he notices that it is triggered by when he is stressed with interaction with his mom. He is taking all his medications. He had a Holter monitor in June which had shown 27% burden of atrial flutter with intermittent atrial fibrillation as well. He has not had any bleeding issues or neurologic event. Takes all his medications regularly. Denies any syncopal episodes. Denies any orthopnea, PND, leg edema. No exertional chest pain. [facility] Medical History (Updated 08/17/23 @ 08:54 by Daryl Hawley MD) Persistent atrial fibrillation Paroxysmal atrial fibrillation COVID-19 vaccine series completed Borderline diabetes Asthma HTN (hypertension) Surgical History Hx of hernia repair Family History Father CVA (cerebral vascular accident) Mother No problems noted. Social History Household Members Other:: partner & mother Are you a primary hearing healthcare practitioner to a significant other at home: No Do you presently have visiting nurse or other home services: No Alcohol intake: never Patient Tobacco Use Status: Current everyday Tobacco user Tobacco use type: Cigarette Cigarette Packs Per Day: 1 Cigarettes Per Day: 20.0 Years Smoked: 37 +/- Review of Systems Const Denies chills, Denies fatigue, Denies fever(s), Denies frequent falls, Denies weakness, Denies weight gain and Denies weight loss ENT Denies dizziness Card Denies chest pain, Denies leg edema, Denies lightheadedness, Denies palpitations, Denies dyspnea, Denies dyspnea on exertion, Denies orthopnea and Denies other (loss of consciousness) Resp Denies cough, Denies dyspnea and Denies dyspnea on exertion GI Denies hematochezia and Denies change in stool character Musc Denies abnormal gait, Denies muscle weakness, Denies numbness, Denies radiating pain into limb and Denies tingling Neuro Denies abnormal gait, Denies dizziness, Denies frequent falls, Denies numbness, Denies tingling and Denies weakness Endo Denies fatigue and Denies palpitations Physical Exam Vital Signs: Last Vital Signs Pulse 89 08/17/23 08:30 BP 120/70 08/17/23 08:30 BMI result Body Mass Index 28.7 Const General: cooperative, healthy appearing, comfortable, no acute distress and anxious Orientation/consciousness: patient oriented x3 Neck Neck: Yes normal visual inspection and Yes no JVD Resp Effort & Inspection: normal respiratory effort Auscultation: clear to auscultation bilaterally, no crackles, no rales, no rhonchi and no wheezes Cardio Jugular venous distension: no JVD Rhythm: abnormal rhythm irregularly irregular Heart sounds: S1 normal heart sound present, S2 normal heart sound present, no gallops, no murmurs and no rubs Neuro General: patient oriented x3 Extrem General: Yes normal to inspection Psych Appearance: grossly normal Mental Status: mental status grossly normal Speech and movement: Normal speech and movement present Office Procedures EKG Details: EKG shows atrial fibrillation at 89 beats per minute [id number], Complete Assessment & Plan Assessment & Plan (1) Persistent atrial fibrillation: Comment: seeing Code(s): I48.19 - Other persistent atrial fibrillation Plan: Recurrent and symptomatic persistent atrial fibrillation. Has failed therapy with Multaq. Says symptomatic with symptoms shortness of breath as well as lightheadedness. All symptoms are mild as per him. He is not in any clinical congestive heart failure or having any signs of decompensation. However he has done well with rhythm control approach will continue pursue rhythm control approach. Advised to reduce his caffeine intake. He said he is abstaining from alcohol. Will discontinue Multaq and switch him to amiodarone therapy for now with loading and followed by synchronized cardioversion refer him to EPS given his age for consideration of ablation therapy for him to help with maintenance of rhythm. Continue aggressive risk factor modification. Continue aggressive control blood pressure which is currently well optimized I had detailed discussion about management including long-term benefits of rhythm management. Continue full oral anticoagulation, currently on Xarelto 20 mg daily. Advised blood work as well as chest x-ray prior to starting amiodarone therapy. Will follow up in the clinic in 2 months time, sooner p.r.n.. Thank you for allowing me to partake in his care Orders: Orders Magnesium Today I48.19 - Other persistent atrial fibrillation, I50.30 - Unspecified diastolic (congestive) heart failure TSH reflex Free T4 Today I48.19 - Other persistent atrial fibrillation Liver Panel Today I48.19 - Other persistent atrial fibrillation Complete Blood Count no Diff Today I48.19 - Other persistent atrial fibrillation Basic Metabolic Panel Today I48.19 - Other persistent atrial fibrillation B Type Natriuretic Peptide Today I48.19 - Other persistent atrial fibrillation XR chest 2V Today I48.19 - Other persistent atrial fibrillation Medications: New amiodarone 400 mg PO BID 30 tabs 0RF amiodarone Start after 15 days of loading 200 mg PO DAILY 30 tabs 2RF Discontinued dronedarone (Multaq) Discontinued Reason: Doctor's Order 400 mg PO BID 180 tabs 3RF Coding Level of Care Code Est Pt Level 4 (62499) Diagnoses Persistent atrial fibrillation I48.19 CPT Codes EKG - CPT: 72982-[id number], Complete ([id number])
[2023-08-17 08:30] VITALS: BP 120/70; PULSE 89; BMI 28.7
== END 2023-08-17 08:56 | disposition home or self-care (01) ==
PROVIDERS: PCP Internal Medicine; Visit Provider Internal Medicine Cardiovascular Disease
DX: I48.19 Other persistent atrial fibrillation (principal)
CPT/HCPCS: 93010; 99214

== ENCOUNTER → 2023-08-17 08:23 | Outpatient (BNVA) | payer OTHER, SELFPAY | PROVIDERS: PCP Internal Medicine; Visit Provider Internal Medicine Cardiovascular Disease | DX: I48.19 Other persistent atrial fibrillation (principal) | CPT/HCPCS: 93005 ==

== ENCOUNTER 2023-08-18 06:52 | Outpatient (REF) | payer OTHER, SELFPAY ==
--- NOTE | ~2023-08-18 | XR_ITS ---
EXAMINATION: XR CHEST CLINICAL INFORMATION: Persistent atrial fibrillation COMPARISON: 08/28/2021 TECHNIQUE: 2 views of the chest were obtained. FINDINGS: Heart, mediastinum, pulmonary vessels and lung owens within normal limits. Costophrenic angles not included bilaterally. Bony structures are intact. XR/XR chest 2V IMPRESSION: No acute cardiopulmonary disease.
[2023-08-18 07:24] LABS: Hematocrit 45.4 % (42.0-52.0); Hemoglobin 15.3 g/dl (14.0-18.0); Mean Corpuscular HGB Conc 33.7 g/dl (31.0-36.0); Mean Platelet Volume 10.4 fL (9.4-12.4); Platelet Count 235 X10*3/uL (160-400); Red Blood Count 4.78 X10*6/uL (4.60-5.80); Red Cell Distribution Width 13.9 % (11.0-16.0); White Blood Count 7.9 X10*3/uL (4.8-10.8)
[2023-08-18 07:44] LABS: B Type Natriuretic Peptide 34 pg/mL (<100)
[2023-08-18 07:52] LABS: Alanine Aminotransferase 18 U/L (0-40); Albumin Level 4.5 g/dL (3.5-5.0); Alkaline Phosphatase 59 U/L (39-117); Anion Gap 13 (12-20); Aspartate Amino Transferase 12 U/L (5-37); Bilirubin Direct 0.2 mg/dL (0.0-0.5); Bilirubin Total 0.4 mg/dL (0.0-1.0); Blood Urea Nitrogen 12 mg/dL (9-16); Calcium 10.1 mg/dL (8.4-10.2); Carbon Dioxide 25 mmol/L (22-29); Chloride 105 mmol/L (96-108); Estimated Glomerular Filt Rate > 60; Glucose Random 148 mg/dL (60-115); Potassium 4.4 mmol/L (3.3-5.1); Sodium 139 mmol/L (135-145); Total Protein 7.5 g/dL (6.5-8.0)
[2023-08-18 08:10] LABS: TSH reflex Free T4 2.22 uIU/mL (0.32-4.0)
== END 2023-08-18 06:53 | disposition home or self-care (01) ==
LOC: HO.LAB 06:52
PROVIDERS: PCP Internal Medicine; Visit Provider Internal Medicine Cardiovascular Disease
DX: I48.19 Other persistent atrial fibrillation (principal); I50.30 Unspecified diastolic (congestive) heart failure
CPT/HCPCS: 36415; 71046; 80048; 80076; 83735; 83880; 84443; 85027

== ENCOUNTER 2024-06-08 09:01 | Outpatient (AMB) | payer OTHER, SELFPAY ==
[2024-06-08 09:05] VITALS: BP 140/68; PULSE 82; BMI 28.7
--- NOTE | 2024-06-08 09:05 | A.OFFVIS_ITS ---
Vital Signs 06/08/24 09:05 Height 6 ft Weight 211 lb 10.3 oz BMI 28.7 BP 140/68 H Blood Pressure Location Lt brachial Position Sitting Pulse 82 Pulse Source Monitor Intake Visit Reasons: Follow up/had an ablation Allergies bee pollen [bee stings] Allergy (Severe, Verified 05/28/23 08:26) Anaphylaxis meperidine [From Demerol] Allergy (Intermediate, Verified 05/28/23 08:26) Itching Medication List - Last Reconciled 06/08/24 by Daryl Hawley MD albuterol sulfate 90 mcg/actuation 2 puffs inhalation Q4H PRN atorvastatin 20 mg PO DAILY diltiazem HCl CD (Cardizem CD) 240 mg PO QAM 90 days dronedarone 400 mg PO DAILY epinephrine 0.3 mg IM ONCE PRN loratadine (Claritin) 10 mg PO DAILY metformin 500 mg PO DAILY rivaroxaban (Xarelto) 20 mg PO QPM HPI Comments Details: James comes for follow-up. He underwent ablation in November, pulmonary vein isolation. Currently he was taken off amiodarone therapy. He started noticing 6 or 7 weeks ago brief episodes of atrial fibrillation. About a month ago then he notice atrial fibrillation episode that did not go away for 3 days. Then started taking dronedarone only once a day. Since then his atrial fibrillation has been controlled. He is having no side effects dronedarone therapy but only taking it once a day. He has been taking his Xarelto regularly. Denies any shortness of breath, orthopnea, PND. Denies any lightheadedness, syncope. No bleeding issues or neurologic events. No exertional chest pain. [facility] Medical History (Updated 06/08/24 @ 09:27 by Daryl Hawley MD) Persistent atrial fibrillation Paroxysmal atrial fibrillation COVID-19 vaccine series completed Borderline diabetes Asthma HTN (hypertension) Surgical History Hx of hernia repair Family History Father CVA (cerebral vascular accident) Mother No problems noted. Social History Household Members Other:: partner & mother Are you a primary career resource technician to a significant other at home: No Do you presently have visiting nurse or other home services: No Alcohol intake: never Patient Tobacco Use Status: Current everyday Tobacco user Tobacco use type: Cigarette Cigarette Packs Per Day: 1 Cigarettes Per Day: 20.0 Years Smoked: 37 +/- Review of Systems Const Denies weakness ENT Denies dizziness Card Denies chest pain, Denies chest pain with activity, Denies syncope, Denies rapid heart rate, Denies pedal edema, Denies edema, Denies leg edema, Denies lightheadedness, Denies palpitations, Denies dyspnea, Denies dyspnea on exertion and Denies orthopnea Resp Denies cough, Denies dyspnea and Denies dyspnea on exertion GI Denies hematochezia and Denies change in stool character Musc Denies abnormal gait, Denies muscle cramps, Denies muscle weakness, Denies numbness, Denies radiating pain into limb and Denies tingling Neuro Denies abnormal gait, Denies dizziness, Denies syncope, Denies numbness, Denies tingling and Denies weakness Endo Denies palpitations Physical Exam Vital Signs: Last Vital Signs Pulse 82 06/08/24 09:05 BP 140/68 H 06/08/24 09:05 BMI result Body Mass Index 28.7 Const General: cooperative, healthy appearing, comfortable, no acute distress and anxious Orientation/consciousness: patient oriented x3 Neck Neck: Yes normal visual inspection and Yes no JVD Resp Effort & Inspection: normal respiratory effort Auscultation: clear to auscultation bilaterally, no crackles, no rales, no rho nchi and no wheezes Cardio Jugular venous distension: no JVD Rhythm: abnormal rhythm irregularly irregular Heart sounds: S1 normal heart sound present, S2 normal heart sound present, no gallops, no murmurs and no rubs Neuro General: patient oriented x3 Extrem General: Yes normal to inspection Psych Appearance: grossly normal Mental Status: mental status grossly normal Speech and movement: Normal speech and movement present Office Procedures EKG Details: EKG shows normal sinus rhythm with nonspecific ST T wave changes [id number], Complete Assessment & Plan Assessment & Plan (1) Paroxysmal atrial fibrillation: Comment: Status post pulmonary vein isolation procedure November 2023 Code(s): I48.0 - Paroxysmal atrial fibrillation Category: Medical Plan: Highly symptomatic paroxysmal atrial fibrillation with recurrent symptoms post ablation, self started taking dronedarone therapy but only once a day. This is not an adequate therapy. This was discussed with him. Will prescribe dronedarone 400 mg twice a day to control his arrhythmias. Discussed pathophysiology of atrial fibrillation in his case most likely structural heart disease causing him to have recurrent atrial fibrillation despite having pulmonary vein isolation procedure. He understood the pathophysiology. Willing to restart Multaq therapy. Continue Cardizem. Avoidance of stimulants was discussed. Continue full oral anticoagulation, currently on Xarelto 20 mg daily. Semi annual renal function test should be pursued. CHADSVASc score of 3. Will set him up for home sleep study. Echocardiogram in 3 months time. (2) HTN (hypertension): Code(s): I10 - Essential (primary) hypertension Category: Medical Plan: Hypertension which is currently well optimized on current therapy. Importance of good blood pressure control was discussed. Target goal blood pressure less than 130/84. Advised to monitor blood pressure at home maintain a log. Low- salt diet was discussed. Continue aggressive diabetes management which is being pursue through office with goal hemoglobin A1c less than 7%. Bilateral carotid disease along with multiple risk factors, continue statin therapy with target goal LDL less than 70 mg/dL being pursue through office. Will follow up in the clinic in 3 months time, sooner p.r.n.. Thank you for allowing me to partake in his care Medications: New dronedarone must administer with a meal/food 400 mg PO DAILY 60 tabs 5RF Discontinued amiodarone Discontinued Reason: Patient no longer taking 200 mg PO DAILY 90 days 90 tabs 3RF Coding Level of Care Code Est Pt Level 4 (45192) Diagnoses Paroxysmal atrial fibrillation I48.0 HTN (hypertension) I10 CPT Codes EKG - CPT: 09688-[id number], Complete ([id number])
== END 2024-06-08 09:28 | disposition home or self-care (01) ==
PROVIDERS: PCP Internal Medicine; Visit Provider Internal Medicine Cardiovascular Disease
DX: I48.0 Paroxysmal atrial fibrillation (principal); I10 Essential (primary) hypertension
CPT/HCPCS: 93010; 99214

== ENCOUNTER → 2024-06-08 09:01 | Outpatient (BNVA) | payer OTHER, SELFPAY | PROVIDERS: PCP Internal Medicine; Visit Provider Internal Medicine Cardiovascular Disease | DX: I48.0 Paroxysmal atrial fibrillation (principal); I10 Essential (primary) hypertension; Z79.01 Long term (current) use of anticoagulants; Z79.899 Other long term (current) drug therapy | CPT/HCPCS: 93005 ==

== ENCOUNTER → 2024-09-08 07:56 | Outpatient (REF) | payer OTHER, SELFPAY ==
--- NOTE | 2024-09-08 08:01 | CA_ITS ---
Transthoracic Echocardiogram Patient (Last, First, Middle): James Silveira, Gender: Male Date of : 1965 Age: 59 Procedure Date: 09/08/2024 Procedure Type: Transthoracic Echocardiogram Location: OP Height: 185.42 cm Weight: 99.79 kg BSA: 2.24 m2 Heart Rate: 73 bpm BP: 138 / 70 mmHg Comfort Advisor: SB Referring MD: Daryl Hawley MD Symptoms: I48.0 - Paroxysmal atrial fibrillation Study Quality: Fair ECG Rhythm: Sinus Conclusions: - Normal left ventricular size and systolic function. The visually estimated ejection fraction is between 55-60%. There is no evidence of regional wall motion abnormalities. Diastolic function is normal for age. There is severe septal asymmetric hypertrophy. - Normal right ventricular cavity size and systolic function. Findings Left Ventricle Normal left ventricular size and systolic function. The visually estimated ejection fraction is between 55-60%. There is no evidence of regional wall motion abnormalities. Diastolic function is normal for age. There is severe septal asymmetric hypertrophy. Right Ventricle Normal right ventricular cavity size and systolic function. Atria The left atrium is normal in size. The right atrium is normal in size. Aortic Valve Normal aortic valve structure and function. There is no aortic valve stenosis. There is no aortic valve regurgitation. Mitral Valve The mitral valve appears normal. There is no mitral valve regurgitation. There is no mitral valve stenosis. Pulmonic Valve The pulmonic valve is likely normal. Tricuspid Valve Normal tricuspid valve structure. There is trace tricuspid valve regurgitation. Tricuspid regurgitation envelope is inadequate for calculation of right ventricular systolic pressure. Normal right atrial pressure. There is no evidence of pulmonary hypertension. Great Vessels All visible segments of the aorta are normal in size. Venous The inferior vena cava is normal in size and collapses greater than 50% with inspiration. Pericardium/Pleural There is no evidence of pericardial effusion. Prior Study Comparison Changes noted compared to prior study dated: 01/14/2023. Severe upper septal hypertrophy. normal LVEF. Measurements 2D Linear Measurements IVSd: 1.53 0.6-0.9/0.6-1.0 cm LVIDd: 4.97 3.9-5.3/4.2-5.9 cm LVIDd Index: 2.22 2.4-3.2/2.2-3.1 cm/m2 LVIDs: 2.98 2.0-3.6 cm LVPWd: 0.95 0.7-1.1 cm LA Diam: 3.70 2.7-3.8/3.0-4.0 cm LAIDs Index: 1.65 1.5-2.3 cm/m2 LV Mass: 302.88 67-162/88-224 g LV Mass Index: 135.21 43-95/49-115 g/m2 LVOT Diam: 2.30 3.0+(-)1.3 cm 2D Systolic Function EF 4C: 57.60 >55% EF 2C: 66.40 >55% EF BiP: 60.60 >55% Mitral Valve MV Pk E: 0.94 MV PK A: 0.56 MV Decel Time: 249.00 E/A: 1.70 E'Lateral: 9.14 E'Medial: 8.27 E/E' Med: 11.40 E/E' Lat: 10.30 PHT: 73.00 MVA PHT: 3.[address] [place]: 3.79 Aortic Valve AoV Pk Juan: 1.17 AoV Pk Grad: 5.00 SARY: 3.93 LVOT LVOT Pk Juan: 0.93 LVOT Mn Juan: 0.61 LVOT VTI: 0.17 LVOT Pk Grad: 3.00 LVOT Mn Grad: 2.00 LVOT Diam: 2.30 LVOT Area: 4.15 Diastolic Function MV Pk E: 0.94 MV Pk A: 0.56 E/A: 1.70 E'Medial: 8.27 E/E' Med: 11.40 E' Laterial: 9.14 E/E' Lat: 10.30 Right Ventricle TAPSE (mm): 18.90 TVS' Juan: 12.10 Tricuspid Valve RA Press: 3.00 Great Vessels Aorta Sinus of Valsalva: 3.40 2.0-3.5 cm Ao Asc: 3.30 2.1-3.4 cm Pulmonary Veins Pulm Vein S/D 0.70 Pulmonary Valve PV Pk Juan: 0.98 Peak PV Grad: 4.00 Updated in Other Vendor System with Status of Final Joe Lara MD electronically signed on 09/10/2024 1:34:58 PM with status of Final
== END ==
LOC: HO.CARD 07:56
PROVIDERS: PCP Internal Medicine; Visit Provider Internal Medicine Cardiovascular Disease
DX: I48.0 Paroxysmal atrial fibrillation (principal)
CPT/HCPCS: 93306

== ENCOUNTER → 2024-09-08 08:01 | Outpatient (BNV) | payer OTHER, SELFPAY | PROVIDERS: PCP Internal Medicine; Visit Provider Internal Medicine Cardiovascular Disease | DX: I42.2 Other hypertrophic cardiomyopathy (principal) | CPT/HCPCS: 93306 ==

== ENCOUNTER 2024-09-29 09:06 | Outpatient (AMB) | payer OTHER, SELFPAY ==
--- NOTE | 2024-09-29 09:08 | MHC.OFFVIS ---
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 Accompanied by: Self / Same As Patient Allergies bee pollen [bee stings] Allergy (Severe, Verified 05/28/23 08:26) Anaphylaxis meperidine [From Demerol] Allergy (Intermediate, Verified 05/28/23 08:26) Itching Medication List - Last Reconciled 09/29/24 by Daryl Hawley MD albuterol sulfate 90 mcg/actuation 2 puffs inhalation Q4H PRN atorvastatin 20 mg PO DAILY diltiazem HCl CD (Cardizem CD) 240 mg PO QAM 90 days dronedarone 400 mg PO BID 90 days epinephrine 0.3 mg IM ONCE PRN loratadine (Claritin) 10 mg PO DAILY metformin 750 mg PO DAILY rivaroxaban (Xarelto) 20 mg PO QPM HPI Comments Details: Allan comes for follow-up. He said the last 3 months he is doing extremely well. He has not had any episodes of atrial fibrillation. Occasionally feels fluttering in his chest and anxious feeling but this improves. He denies any exertional chest pain or shortness of breath. Says that he does not exercise but remains very active at work. Denies any shortness of breath,, exertional chest pain. No orthopnea, PND, leg edema. No lightheadedness, syncope. Unfortunately continues to smoke. No recent lab work in the system here. [facility] Medical History Persistent atrial fibrillation Paroxysmal atrial fibrillation COVID-19 vaccine series completed Borderline diabetes Asthma HTN (hypertension) Surgical History Hx of hernia repair Family History Father CVA (cerebral vascular accident) Mother No problems noted. Social History Household Members Other:: partner & mother Are you a primary care transport nurse to a significant other at home: No Do you presently have visiting nurse or other home services: No Alcohol intake: never Patient Tobacco Use Status: Current everyday Tobacco user Tobacco use type: Cigarette Cigarette Packs Per Day: 1 Cigarettes Per Day: 20.0 Years Smoked: 37 +/- Review of Systems Const Denies chills, Denies fatigue, Denies fever(s), Denies weight gain and Denies weight loss ENT Denies dizziness Card Denies chest pain, Denies leg edema, Denies lightheadedness, Denies palpitations, Denies dyspnea on exertion, Denies orthopnea and Denies other Resp Denies cough and Denies dyspnea on exertion GI Denies hematochezia and Denies change in stool character Musc Denies abnormal gait, Denies muscle weakness, Denies numbness, Denies radiating pain into limb and Denies tingling Neuro Denies abnormal gait, Denies dizziness, Denies numbness and Denies tingling Endo Denies fatigue and Denies palpitations Physical Exam Vital Signs: Last Vital Signs Pulse 80 09/29/24 09:09 BP 148/68 H 09/29/24 09:09 BMI result Body Mass Index 28.8 Const General: cooperative, healthy appearing, comfortable, no acute distress and anxious Orientation/consciousness: patient oriented x3 Neck Neck: Yes normal visual inspection and Yes no JVD Resp Effort & Inspection: normal respiratory effort Auscultation: clear to auscultation bilaterally, no crackles, no rales, no rhonchi and no wheezes Cardio Jugular venous distension: no JVD Rhythm: abnormal rhythm irregularly irregular Heart sounds: S1 normal heart sound present, S2 normal heart sound present, no gallops, no murmurs and no rubs Neuro General: patient oriented x3 Extrem General: Yes normal to inspection Psych Appearance: grossly normal Mental Status: mental status grossly normal Speech and movement: Normal speech and movement present Office Procedures EKG Details: EKG shows normal sinus rhythm nonspecific ST T wave changes [id number], Complete Assessment & Plan Assessment & Plan (1) Paroxysmal atrial fibrillation: Comment: Status post pulmonary vein isolation procedure November 2023 Code(s): I48.0 - Paroxysmal atrial fibrillation Category: Medical Plan: Highly symptomatic paroxysmal atrial fibrillation with recurrence despite ablation in November. Has currently been on Multaq therapy in his doing extremely well. No recurrent symptoms of atrial fibrillation. Continue Multaq therapy given his significant improvement and continue rhythm control approach. Continue full oral anticoagulation, currently on Xarelto 20 mg daily. Semi annual renal function test is recommended. Recommend to aggressive blood pressure control which is currently well optimized with current therapy. Avoidance of stimulants was discussed. Advised to call me with worsening symptoms. (2) Bilateral carotid artery disease: Code(s): I77.9 - Disorder of arteries and arterioles, unspecified Category: Medical Plan: Bilateral carotid disease with multiple risk factors including hypertension diabetes as well as smoking. Strongly recommend smoking cessation. Continue statin therapy. Target goal LDL less than 55 mg/dL. Advised lipid panel at least on a yearly basis. Continue aggressive diabetes management goal hemoglobin A1c less than 7%. Consider therapy with GLP 1 antagonist given his atherosclerotic sclerotic risk. Continue aggressive blood pressure control which is currently well optimized. Continue current therapy. Importance of good blood pressure control was discussed. Advised to call me with any exertional cardiac symptoms. Follow up in the clinic in 3 months for EKG in 6 months with me. Thank you for allowing me to partake in his care Orders: Orders Basic Metabolic Panel Today I48.0 - Paroxysmal atrial fibrillation Coding Level of Care Code Est Pt Level 4 (80450) Complex EM visit Add On G2211 Diagnoses Paroxysmal atrial fibrillation I48.0 Bilateral carotid artery disease I77.9 CPT Codes EKG - CPT: 12451-[id number], Complete ([id number])
[2024-09-29 09:09] VITALS: BP 148/68; PULSE 80; BMI 28.8
== END 2024-09-29 09:35 | disposition home or self-care (01) ==
PROVIDERS: PCP Internal Medicine; Visit Provider Internal Medicine Cardiovascular Disease
DX: I48.0 Paroxysmal atrial fibrillation (principal); I77.9 Disorder of arteries and arterioles, unspecified
CPT/HCPCS: 93010; 99214

== ENCOUNTER → 2024-09-29 09:06 | Outpatient (BNVA) | payer OTHER, SELFPAY | PROVIDERS: PCP Internal Medicine; Visit Provider Internal Medicine Cardiovascular Disease | DX: I48.0 Paroxysmal atrial fibrillation (principal); I77.9 Disorder of arteries and arterioles, unspecified; Z79.01 Long term (current) use of anticoagulants; Z79.899 Other long term (current) drug therapy | CPT/HCPCS: 93005 ==

== ENCOUNTER → 2024-12-22 08:54 | Outpatient (BNVA) | payer OTHER, SELFPAY | PROVIDERS: PCP Internal Medicine; Visit Provider Internal Medicine Cardiovascular Disease ==

== ENCOUNTER 2025-04-17 11:26 | Outpatient (AMB) | payer OTHER, SELFPAY ==
--- NOTE | 2025-04-17 11:28 | MHC.OFFVIS ---
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: No Allergies bee pollen [bee stings] Allergy (Severe, Verified 05/28/23 08:26) Anaphylaxis meperidine [From Demerol] Allergy (Intermediate, Verified 05/28/23 08:26) Itching Medication List - Last Reconciled 04/17/25 by Daryl Hawley MD albuterol sulfate 90 mcg/actuation 2 puffs inhalation Q4H PRN atorvastatin 20 mg PO DAILY diltiazem HCl CD (Cardizem CD) 240 mg PO QAM 90 days dronedarone 400 mg PO BID 90 days epinephrine 0.3 mg IM ONCE PRN loratadine (Claritin) 10 mg PO DAILY metformin 750 mg PO DAILY rivaroxaban (Xarelto) 20 mg PO QPM tirzepatide (Mounjaro) mg subcut HPI Comments Details: Allan comes for follow-up. He said he occasionally feels fluttering in his chest especially when he has lot of caffeine. Otherwise he is doing well. He is currently on GLP 1 antagonist and has lost about 10 lb. He has not had any prolonged palpitation irregular heartbeat. No bleeding issues or neurologic events. Planning to see vascular surgery as he was noted to have abdominal aortic aneurysm. Takes all his medications regularly. No heart failure symptoms. No exertional chest pain. Remains very active. [facility], [facility] Medical History Persistent atrial fibrillation Paroxysmal atrial fibrillation COVID-19 vaccine series completed Borderline diabetes Asthma HTN (hypertension) Surgical History Hx of hernia repair Family History Father CVA (cerebral vascular accident) Mother No problems noted. Social History Household Members Other:: partner & mother Are you a primary early breastfeeding care specialist to a significant other at home: No Do you presently have visiting nurse or other home services: No Alcohol intake: never Patient Tobacco Use Status: Current everyday Tobacco user Tobacco use type: Cigarette Cigarette Packs Per Day: 1 Cigarettes Per Day: 20.0 Years Smoked: 37 +/- Review of Systems Const Denies chills, Denies fatigue, Denies fever(s), Denies frequent falls, Denies weakness, Denies weight gain and Denies weight loss ENT Denies dizziness Card Denies chest pain, Denies leg edema, Denies lightheadedness, Denies palpitations, Denies dyspnea, Denies dyspnea on exertion, Denies orthopnea and Denies other (loss of consciousness) Resp Denies cough, Denies dyspnea and Denies dyspnea on exertion GI Denies hematochezia and Denies change in stool character Musc Denies abnormal gait, Denies muscle weakness, Denies numbness, Denies radiating pain into limb and Denies tingling Neuro Denies abnormal gait, Denies dizziness, Denies frequent falls, Denies numbness, Denies tingling and Denies weakness Endo Denies fatigue and Denies palpitations Physical Exam Vital Signs: Last Vital Signs Pulse 81 04/17/25 11:29 BP 130/74 04/17/25 11:29 BMI result Body Mass Index 27.2 Const General: cooperative, healthy appearing, comfortable, no acute distress and anxious Orientation/consciousness: patient oriented x3 Neck Neck: Yes normal visual inspection and Yes no JVD Resp Effort & Inspection: normal respiratory effort Auscultation: clear to auscultation bilaterally, no crackles, no rales, no rhonchi and no wheezes Cardio Jugular venous distension: no JVD Rhythm: abnormal rhythm irregularly irregular Heart sounds: S1 normal heart sound present, S2 normal heart sound present, no gallops, no murmurs and no rubs Neuro General: patient oriented x3 Extrem General: Yes normal to inspection Psych Appearance: grossly normal Mental Status: mental status grossly normal Speech and movement: Normal speech and movement present Office Procedures EKG Details: EKG shows normal sinus rhythm nonspecific ST T wave changes [id number], Complete Assessment & Plan Assessment & Plan (1) Paroxysmal atrial fibrillation: Comment: Status post pulmonary vein isolation procedure November 2023 Code(s): I48.0 - Paroxysmal atrial fibrillation Category: Medical Plan: Highly symptomatic paroxysmal atrial fibrillation has remained suppressed predominantly on current therapy of Multaq status post ablation last year. Doing well with rhythm control approach will continue pursue rhythm control approach. Continue Multaq therapy. Will need EKGs every 3 months. Continue full oral anticoagulation, currently on Xarelto 20 mg daily. CHADSVASc score is at least 3. Semi annual renal function test is recommended. This is being pursue through office. Continue avoid stimulants. Advised to call me with worsening symptoms. (2) Bilateral carotid artery disease: Code(s): I77.9 - Disorder of arteries and arterioles, unspecified Category: Medical Plan: Diffuse atherosclerosis bilateral nonobstructive carotid disease by last carotid ultrasound now noticed a abdominal aortic aneurysm. He is going to been seen by vascular surgery. Continue aggressive risk factor modification. Continue aggressive diabetes management goal hemoglobin A1c less than 7%. Blood pressure is currently well optimized. Advised to monitor blood pressure at home maintain a log. Continue statin therapy with target goal LDL less than 70 mg/dL. Will follow up in the clinic in 1 year with me. Coding Level of Care Code Est Pt Level 4 (07980) Complex EM visit Add On G2211 Diagnoses Paroxysmal atrial fibrillation I48.0 Bilateral carotid artery disease I77.9 CPT Codes EKG - CPT: 11411-[id number], Complete ([id number])
[2025-04-17 11:29] VITALS: BP 130/74; PULSE 81; BMI 27.2
== END 2025-04-17 11:54 | disposition home or self-care (01) ==
LOC: HO.HCS 11:26
PROVIDERS: PCP Internal Medicine; Visit Provider Internal Medicine Cardiovascular Disease
DX: I48.0 Paroxysmal atrial fibrillation (principal); I77.9 Disorder of arteries and arterioles, unspecified
CPT/HCPCS: 93010; 99214

== ENCOUNTER → 2025-04-17 11:26 | Outpatient (BNVA) | payer OTHER, SELFPAY | PROVIDERS: PCP Internal Medicine; Visit Provider Internal Medicine Cardiovascular Disease | DX: I48.0 Paroxysmal atrial fibrillation (principal); I71.40 Abdominal aortic aneurysm, without rupture, unspecified; I77.9 Disorder of arteries and arterioles, unspecified; F17.210 Nicotine dependence, cigarettes, uncomplicated; Z79.84 Long term (current) use of oral hypoglycemic drugs | CPT/HCPCS: 93005 ==